=== PATIENT | male | born 1965 | race Caucasian/White ===

== ENCOUNTER 2021-10-19 07:38 | Emergency (ER) | payer BC, SELFPAY ==
[2021-10-19 07:49] VITALS: BP 132/96; PULSE 69; O2SAT 97
[2021-10-19 07:52] VITALS: BP 132/96; PULSE 57; RESP 20; TEMP 36.7; O2SAT 98; BMI 30.9
--- NOTE | 2021-10-19 07:59 | HMH.EDGENADL ---
Discharge Plan Disposition Patient Disposition: Home, Self-Care Condition: Good Prescriptions Prescriptions: New diclofenac potassium 50 mg tablet 50 mg PO TID PRN (Reason: pain) Qty: 30 0RF tizanidine 4 mg capsule 4 mg PO TID PRN (Reason: muscle spasticity) Qty: 20 0RF Referrals Follow up/Referrals: Luis A Cerna MD [Primary Care Provider] - See instructions Activity Restrictions/Add. Instructions Additional Instructions/Restrictions: Apply ice 4-5 times daily, 15 minutes each time to the area of discomfort. Avoid strenuous physical activity. Off work for the remainder of this week. Follow-up closely with your primary care provider for consideration of physical therapy and/or advanced imaging if symptoms do not improve. Clinical Impressions Clinical Impression: Spasm of back muscles Discharge ED Provider: Elijah Hannon General Adult HPI General Chief complaint: Extremity Injury, Upper Stated complaint: back of shoulder pain, no accident Time Seen by Provider: 10/19/21 07:48 Mode of Arrival: Ambulatory Source of Information: Patient Limitations: No Limitations Description of Symptoms (Recalled from ER Triage Doc. by RN): Patient complains of right shoulder pain. Patient reports that the pain woke him up from his sleep around 0430 and has not been able to get chele relief. History of Present Illness HPI narrative: Presents complaining of pain between the shoulder blades that began approximate 5 AM this morning. He notes that the positional nature and describes the pain as moderate to severe and exacerbated by certain types of movements and positions. He states has been having similar episodic pain for the last month. He denies chest pain, shortness of air or focal neurological deficits at this time. Related Data Previous Rx's Medication Instructions Recorded diclofenac potassium 50 mg tablet 50 mg PO TID PRN pain #30 tabs 10/19/21 tizanidine 4 mg capsule 4 mg PO TID PRN muscle spasticity 10/19/21 #20 caps Allergies Allergy/AdvReac Type Severity Reaction Status Date / Time No Known Allergies Allergy Verified 10/19/21 07:57 [facility] Social History Smoking Status: Current every day smoker tobacco type: cigarettes alcohol intake: never current occupational status: employed Travel in the last 8 weeks: None ROS Obtained: Yes All systems reviewed & no additional complaints except as documented Physical Exam General General appearance: alert Head Head exam: atraumatic Eye Eye exam: Present normal appearance Neck Neck exam: Present normal inspection (Pt. is holding the head tilted to the right and apparent discomfort.) Chest Chest inspection: Present normal inspection Respiratory Respiratory exam: Present normal lung sounds bilaterally Cardiovascular Cardiovascular exam: Present regular rate and normal rhythm Abdominal Exam Abdominal exam: Present soft; Absent tenderness Back Exam Back exam: Present normal inspection (There is apparent tenderness in the thoracic paraspinous muscle distribution more so to the right than the left. There is no midline spinous process tenderness or erythema or edema. No findings of trauma.) Neurological Exam Neurological exam: Present alert, oriented X3 and motor sensory deficit Psychiatric Psychiatric exam: Present normal affect and normal mood Skin Skin exam: Present warm and dry Lymphatic Lymphatic Findings: no adenopathy Medical Decision Making Medical Records Medical records reviewed: Yes I reviewed the patient's medical records. Braydon Inquiry Pt receiving controlled substance: Yes Braydon was queried for this patient: Yes Risks and benefits of using a controlled substance: were discussed with pt by me Vital Signs: 10/19/21 07:52 10/19/21 07:49 10/19/21 09:19 Temperature 98.1 F Temperature Source Oral Pulse Rate 69 51 L Pulse Rate [Left Brachial] 57 L Respiratory Rate 2
--- NOTE | 2021-10-19 08:31 | XR_ITS ---
FINAL REPORT CLINICAL HISTORY: neck/shoulder pain, woke up with pain, no recent injury FINDINGS: CERVICAL SPINE 4 views were obtained. There is no acute fracture. There is no malalignment. There are mild degenerative changes with osteophytes. There is no soft tissue abnormality. IMPRESSION: No acute bony abnormality. Reviewed, Interpreted and Dictated by Malcom Watters III, MD Transcribed by Milena Reardon Authenticated and [facility]
[2021-10-19 09:19] VITALS: BP 121/64; PULSE 51; O2SAT 96
[2021-10-19 09:30] VITALS: BP 109/51; PULSE 46; O2SAT 96
[2021-10-19 09:59] VITALS: BP 109/51; PULSE 47; RESP 20; TEMP 36.7; O2SAT 95
== END 2021-10-19 10:03 | disposition home or self-care (01) ==
PROVIDERS: Emergency Provider Emergency Medicine; PCP Internal Medicine Adolescent Medicine
DX: M25.511 Pain in right shoulder; M62.830 Muscle spasm of back; F17.210 Nicotine dependence, cigarettes, uncomplicated
CPT/HCPCS: 72040; 96374; 96375; 96376; 99284

== ENCOUNTER 2021-11-17 16:00 | Outpatient (RCR) | payer BC, SELFPAY ==
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
== END 2021-11-17 16:05 | disposition home or self-care (01) ==
LOC: PT 16:00
PROVIDERS: PCP Internal Medicine Adolescent Medicine; Visit Provider Nurse Practitioner Family
DX: M54.2 Cervicalgia (principal)
CPT/HCPCS: 97163

== ENCOUNTER 2023-09-26 19:48 | Emergency (ER) | payer BC, SELFPAY ==
[2023-09-26 19:50] VITALS: BP 161/77; PULSE 87; RESP 18; TEMP 37.4; O2SAT 97; BMI 28.4
--- NOTE | 2023-09-26 19:51 | ED_ITS ---
<Statement entered by Shasta Urena DO - 09/26/23 22:00> I was consulted by the RUSTY, and we discussed the complexity of the problems being addressed. I approved the treatment and management plan for this patient's care in the emergency department, thus performing a substantive portion of the medical decision making. Shasta Urena DO Discharge Plan Disposition Patient Disposition: Home, Self-Care Condition: Good Prescriptions Prescriptions: No Action diclofenac potassium 50 mg tablet 50 mg PO TID PRN (Reason: pain) Qty: 30 0RF tizanidine 4 mg capsule 4 mg PO TID PRN (Reason: muscle spasticity) Qty: 20 0RF Referrals Follow up/Referrals: Luis A Cerna MD [Primary Care Provider] - See instructions Activity Restrictions/Add. Instructions Additional Instructions/Restrictions: Follow-up with your PCP for any worsening signs or symptoms. Return to ER for any worsening signs or symptoms. Take Tylenol alternating with Motrin every 4 hours as needed for constitutional symptoms. Clinical Impressions Clinical Impression: Acute COVID-19 Stand Alone Forms Stand Alone Forms: Work/School Release Instructions Patient Instructions: DI for COVID-19 (Suspected or Confirmed ) Print Language Print Language: Chinese Discharge ED Provider: Shasta Urena General Adult HPI General Chief complaint: Weakness Stated complaint: Chills,weakness Time Seen by Provider: 09/26/23 19:51 History of Present Illness HPI narrative: Patient presents for evaluation of 24 hours of fever malaise and weakness. Patient states that he had a coworker recently tested positive for COVID and he himself is vaccinated up-to-date with COVID however in the last 24 hours he has felt weak describing cold chills running up and down my back with a dry cough but no headache chest pain shortness of breath hemoptysis hematochezia melena hematemesis. Related Data Previous Rx's ?Medication ?Instructions ?Recorded diclofenac potassium 50 mg tablet 50 mg PO TID PRN pain #30 tabs 10/19/21 tizanidine 4 mg capsule 4 mg PO TID PRN muscle spasticity 10/19/21 #20 caps Allergies Allergy/AdvReac Type Severity Reaction Status Date / Time No Known Allergies Allergy Verified 10/19/21 07:57 [facility] Disclaimer: The information contained in this section may have been updated after the patient was seen, as this information can be updated by other users. Social History (Updated 10/19/21 @ 09:53 by Elijah Hannon MD) Smoking Status: Current every day smoker tobacco type: cigarettes alcohol intake: never current occupational status: employed Travel in the last 8 weeks: None ROS Obtained: Yes Systems reviewed as appropriate & no additional complaints except as documented Physical Exam General General appearance: alert and in no apparent distress Respiratory Respiratory exam: Present normal lung sounds bilaterally; Absent respiratory distress, wheezes, stridor or accessory muscle use Cardiovascular Cardiovascular exam: Present regular rate, normal rhythm, normal heart sounds and +S2 Neurological Exam Neurological exam: Present alert and oriented X3 Medical Decision Making Medical Records Medical records reviewed: Yes I reviewed the patient's medical records. Braydon Inquiry Pt receiving controlled substance: No Braydon was queried for this patient: No Vital Signs: 09/26/23 19:50 09/26/23 20:00 09/26/23 21:22 Temperature 99.4 F 98.2 F Temperature Source Oral Pulse Rate 76 84 Pulse Rate [Left] 87 Respiratory Rate 18 18 Blood Pressure 151/76 H 145/68 H Blood Pressure [Right Arm] 161/77 H Blood Pressure Mean 88 Blood Pressure Mean [Right Arm] 105 Blood Pressure Source [Right Arm] Automatic Cuff Blood Pressure Position [Right Arm] Sitting 02 Sat by Pulse Oximetry 97 Oxygen Delivery Method Room Air Lab Data Lab results reviewed: Yes I reviewed the patient's lab results. Lab Results 09/26/23 19:58: SARS-CoV-2 (PCR) Detected A, Influenza A Untype (PCR) Not detected, Influenza Type B (PCR) Not detected 09/26/23 20:11: WBC 7.6, RBC 4.72, Hgb 15.1, Hct 47.0, MCV 99.7 H, MCH 31.9 H, MCHC 32.0, RDW 13.4, Plt Count 218, MPV 7.9, Neut % (Auto) 86.4 H, Lymph % (Auto) 5.5 L, [place] % (Auto) 5.5, Eos % (Auto) 2.0, Baso % (Auto) 0.7, Neut # (Auto) 6.6, Lymph # (Auto) 0.4 L, [place] # (Auto) 0.4, Eos # (Auto) 0.2, Baso # (Auto) 0.1, Sodium 136, Potassium 3.6, Chloride 103, Carbon Dioxide 26, Anion Gap 10.6, BUN 15, Creatinine 1.10, Estimated Creat Clear 78, Estimated GFR 68, Est GFR ( Amer) 83, Glucose 134 H, Calcium 9.1, Total Bilirubin 0.6, AST 38, ALT 37, Alkaline Phosphatase 102, Total Protein 7.7, Albumin 4.4, Globulin 3.3 H, Albumin/Globulin Ratio 1.3 09/26/23 20:11 09/26/23 20:11 Orders (Tests/Meds): ED MEDICATIONS Discontinued Medications Generic Name Dose Route Start Last Admin Trade Name Freq PRN Reason Stop Dose Admin Acetaminophen 1,000 mg 09/26/23 19:57 09/26/23 20:05 Acetaminophen 1,000mg/100ml Vial IV 09/26/23 19:58 1,000 mg ONCE ONE Administration Lactated Ringer's 1,000 mls @ 999 mls/hr 09/26/23 19:57 09/26/23 20:05 Lactated Ringer's 1000 Ml Bag IV 09/26/23 20:57 999 mls/hr .Q1H1M ONE Administration Ketorolac Tromethamine 15 mg 09/26/23 19:57 09/26/23 20:05 Ketorolac 30mg/Ml Vial IV 09/26/23 19:58 15 mg ONCE ONE Administration ORDERS Category Date Time Status Chest XR 2 view (NOT portable) [XR chest 2V] Stat Exams 09/26/23 19:57 Completed CBC w/Auto Diff [Complete Blood Count Auto Diff] Stat Lab 09/26/23 20:11 Results CMP [Comprehensive Metabolic Panel] Stat Lab 09/26/23 20:11 Completed Rapid PCR Covid and Flu A/B Stat Lab 09/26/23 19:58 Completed Medical Decision Narrative: In summary patient is a 58-year-old male who presents to the emergency department for evaluation of cough malaise fever and weakness. Patient is hemodynamically stable upon arrival, afebrile. Physical exam is remarkable for clear breath sounds normal heart sounds satting at 97% on room air normal sinus rhythm on the bedside monitor but patient is febrile on arrival to 99.4. Differential diagnosis includes viral or bacterial upper respiratory tract infection. Initial workup will be conducted with respiratory swabs hematologic labs chest x-ray. Initial interventions include fluid bolus Toradol Tylenol. Initial workup reviewed by shows his hematologic labs are nonactionable medical interpretation of his plain film does show x-ray shows no acute infiltrates suggestive however of bronchitis and his respiratory swabs are positive for COVID. Upon repeat evaluation patient reported significant improvement after initial intervention. Given this patient is appropriate for discharge with instructions on symptomatic treatment for constitutional symptoms with Tylenol and Motrin and strict return precautions. Critical Care Critical Care Time Critical Care Time: No
--- NOTE | 2023-09-26 19:57 | XR_ITS ---
PROCEDURE INFORMATION: Exam: XR Chest Exam date and time: 09/26/2023 8:03 PM Age: 58 years old Clinical indication: Cough; Additional info: Cough cold chills TECHNIQUE: Imaging protocol: Radiologic exam of the chest. Views: 2 views. COMPARISON: CR XR CERVICAL SPINE 3V 10/19/2021 8:43 AM FINDINGS: Lungs: Mild regions of peribronchial thickening at the lung bases. Pleural spaces: Unremarkable. No pleural effusion. No pneumothorax. Heart/Mediastinum: Unremarkable. No cardiomegaly. Bones/joints: Unremarkable. IMPRESSION: Findings compatible with bronchitis.
[2023-09-26 20:00] VITALS: BP 151/76; PULSE 76
[2023-09-26] MEDS: ACETAMINOPHEN 1,000MG/100ML VIAL 1000 MG IV (20:05)
[2023-09-26] MEDS: LACTATED RINGERS 1000ML 1,000 ML 999 ML IV (20:05)
[2023-09-26] MEDS: KETOROLAC 30MG/ML VIAL 15 MG IV (20:05)
[2023-09-26 20:15] LABS: Influenza A, PCR Not Detected (NotDetected); Influenza B, PCR Not Detected (NotDetected)
[2023-09-26 20:26] LABS: Basophils # 0.1 K/mm3 (0-0.2); Basophils % 0.7 % (0.1-2.0); Eosinophils # 0.2 K/mm3 (0.0-0.4); Hemoglobin 15.1 g/dL (14.1-18.0); Lymphocytes # 0.4 K/mm3 (0.7-4.5); Lymphocytes % 5.5 % (10-50); Mean Corpuscular Hemoglobin 31.9 pg (27.0-31.2); Mean Corpuscular Volume 99.7 fl (80-94); Mean Platelet Volume 7.9 fl (7.4-10.4); Monocytes # 0.4 K/mm3 (0.1-1.0); Monocytes % 5.5 % (1.7-9.3); Neutrophils # 6.6 K/mm3 (1.8-7.8); Neutrophils % 86.4 % (37.0-80.0); Platelet Count 218 K/mm3 (142-424); Red Blood Count 4.72 M/mm3 (4.60-6.20); Red Cell Distribution Width 13.4 % (11.5-17.5); White Blood Count 7.6 K/mm3 (4.8-10.8)
[2023-09-26 20:30] LABS: Albumin Level 4.4 g/dl (3.5-5.0); Chloride 103 mmol/L (98-107); Potassium 3.6 mmoL/L (3.5-5.1); Sodium 136 mmol/L (136-145)
[2023-09-26 20:33] LABS: Alanine Aminotransferase 37 U/L (12-78); Albumin/Globulin Ratio 1.3 (1.1-1.8); Alkaline Phosphatase 102 U/L (38-126); Anion Gap 10.6 mEq/L (5-15); Aspartate Amino Transferase 38 U/L (17-59); Bilirubin,Total 0.6 mg/dl (0.2-1.3); Blood Urea Nitrogen 15 mg/dl (9-20); Calcium 9.1 mg/dl (8.4-10.2); Carbon Dioxide 26 mmol/L (22.0-30.0); Creatinine Clearance Estimated 78 mL/min (50-200); Estimated Glomerular Filt Rate 68 ml/min (>60); GFR (African American) 83 ML/MIN (>60); Globulin 3.3 g/dL (1.3-3.2); Glucose 134 mg/dl (74-100); Total Protein,Serum 7.7 g/dl (6.3-8.2)
[2023-09-26 20:45] LABS: MANUAL DIFFERENTIAL MANUAL DIFFERENTIAL (MANUAL DIFF)
[2023-09-26 21:03] LABS: Coronavirus 19, PCR Detected (NotDetected)
[2023-09-26 21:22] VITALS: BP 145/68; PULSE 84; RESP 18; TEMP 36.8; O2SAT 100
[2023-09-27 04:04] LABS: Lymphocytes % 9 % (10-50); Monocytes % 2 % (2-9); Neutrophils % 88 % (42-76); Platelet Estimate Normal; RBC Morphology Normal; Total Cells Counted 100
== END 2023-09-26 21:26 | disposition home or self-care (01) ==
PROVIDERS: Physician Assistant; Emergency Provider Emergency Medicine; PCP Internal Medicine Adolescent Medicine
DX: U07.1 COVID-19 (principal); R50.9 Fever, unspecified; R53.1 Weakness; R05.9 Cough, unspecified; R53.81 Other malaise
CPT/HCPCS: 71046; 80053; 85007; 85025; 85027; 87636; 96361; 96374; 96375; 99284; J0131; J1885; J7120

== ENCOUNTER 2023-10-16 18:08 | Emergency (ER) | payer BC, SELFPAY ==
[2023-10-16 18:10] VITALS: BP 128/78; PULSE 67; RESP 16; TEMP 36.6; O2SAT 99; BMI 28.4
[2023-10-16 18:31] VITALS: BP 133/72; PULSE 64; O2SAT 98
--- NOTE | 2023-10-16 18:42 | ED_ITS ---
<Statement entered by Cy Urena MD - 10/16/23 21:50> I was consulted by the RUSTY, and we discussed the complexity of the problems being addressed. I approved the treatment and management plan for this patient's care in the emergency department, thus performing a substantive portion of the medical decision making. Workup remarkable for acute uncomplicated diverticulitis for which patient was tolerating p.o. and was appropriately discharged with antibiotics and outpatient follow-up. Cy Urena MD Discharge Plan Disposition Patient Disposition: Home, Self-Care Prescriptions Prescriptions: New amoxicillin-pot clavulanate 875-125 mg tablet 1 tab PO BID Qty: 20 0RF No Action diclofenac potassium 50 mg tablet 50 mg PO TID PRN (Reason: pain) Qty: 30 0RF tizanidine 4 mg capsule 4 mg PO TID PRN (Reason: muscle spasticity) Qty: 20 0RF Referrals Follow up/Referrals: Luis A Cerna MD [Primary Care Provider] - See instructions Activity Restrictions/Add. Instructions Additional Instructions/Restrictions: Please follow-up with your PCP in 48 hours for recheck. Return to ER for any worsening signs or symptoms including nausea vomiting intractable pain fever etc. I have sent antibiotics into your pharmacy. Please take all till they are completed Clinical Impressions Clinical Impression: Acute diverticulitis Instructions Patient Instructions: DI for Diverticulitis Print Language Print Language: Cameroonian Discharge ED Provider: Cy Urena General Adult HPI General Chief complaint: Abdominal Pain Stated complaint: Abd Pain in middle of abd Time Seen by Provider: 10/16/23 18:15 Mode of Arrival: Ambulatory Source of Information: Patient Limitations: No Limitations Description of Symptoms (Recalled from ER Triage Doc. by RN): pt reports to ED with c/o pain located below the belly button. pt reports pain intermittent since last night. History of Present Illness HPI narrative: Patient presents for evaluation of periumbilical abdominal pain. Patient has been having periumbilical abdominal pain since yesterday. He states that sharp in nature and does not radiate. He reports that it is intermittent and only last for a few seconds at a time. He denies any fever chills hemoptysis hematochezia melena nausea vomiting diarrhea. Patient reports he has not had a bowel movement since Monday. He is not however intolerant of oral intake. Related Data Previous Rx's ?Medication ?Instructions ?Recorded diclofenac potassium 50 mg tablet 50 mg PO TID PRN pain #30 tabs 10/19/21 tizanidine 4 mg capsule 4 mg PO TID PRN muscle spasticity 10/19/21 #20 caps amoxicillin 875 mg-potassium 1 tab PO BID #20 tabs 10/16/23 clavulanate 125 mg tablet Allergies Allergy/AdvReac Type Severity Reaction Status Date / Time No Known Allergies Allergy Verified 10/19/21 07:57 [facility] Disclaimer: The information contained in this section may have been updated after the patient was seen, as this information can be updated by other users. Social History (Updated 10/19/21 @ 09:53 by Elijah Hannon MD) Smoking Status: Current every day smoker tobacco type: cigarettes alcohol intake: never current occupational status: employed Travel in the last 8 weeks: None ROS Obtained: Yes Systems reviewed as appropriate & no additional complaints except as documented Physical Exam General General appearance: alert and in no apparent distress Respiratory Respiratory exam: Present normal lung sounds bilaterally Cardiovascular Cardiovascular exam: Present regular rate Neurological Exam Neurological exam: Present alert and oriented X3 Medical Decision Making Medical Records Medical records reviewed: Yes I reviewed the patient's medical records. Braydon Inquiry Pt receiving controlled substance: No Vital Signs: 10/16/23 18:10 10/16/23 18:31 10/16/23 19:00 Temperature 97.9 F Temperature Source Oral Pulse Rate 64 58 L Pulse Rate [Left Radial] 67 Respiratory Rate 16 Blood Pressure 133/72 143/96 H Blood Pressure [Right Arm] 128/78 Blood Pressure Mean [Right Arm] 94 02 Sat by Pulse Oximetry 99 98 96 Oxygen Delivery Method Room Air Room Air Room Air Lab Data Lab results reviewed: Yes I reviewed the patient's lab results. Lab Results 10/16/23 18:23: WBC 10.9 H, RBC 4.82, Hgb 15.4, Hct 48.7, MCV 101.2 H, MCH 31.9 H, MCHC 31.5 L, RDW 13.4, Plt Count 264, MPV 8.3, Neut % (Auto) 79.0, Lymph % (Auto) 13.9, [place] % (Auto) 5.4, Eos % (Auto) 1.1, Baso % (Auto) 0.6, Neut # (Auto) 8.6 H, Lymph # (Auto) 1.5, [place] # (Auto) 0.6, Eos # (Auto) 0.1, Baso # (Auto) 0.1, Sodium 141, Potassium 4.1, Chloride 108 H, Carbon Dioxide 28, Anion Gap 9.1, BUN 15, Creatinine 1.00, Estimated Creat Clear 86, Estimated GFR 76, Est GFR ( Amer) 92, Glucose 113 H, Calcium 9.2, Magnesium 2.0, Total Bilirubin 0.7, AST 26, ALT 29, Alkaline Phosphatase 95, Total Protein 8.2, Albumin 4.4, Globulin 3.8 H, Albumin/Globulin Ratio 1.2, Lipase 120 10/16/23 19:16: Urine Color Yellow, Urine Appearance Clear, Urine pH 6.0, Ur Specific [place] >= 1.030, Urine Protein 1+ A, Urine Glucose (UA) Negative, Urine Ketones Negative, Urine Blood 2+ A, Urine Nitrate Negative, Urine Bilirubin Negative, Urine Urobilinogen 0.2, Ur Leukocyte Esterase Negative, Urine RBC 3-5, Urine WBC None, Ur Squamous Epith Cells 3-5, Urine Bacteria Trace, Hyaline Casts Occasional, Urine Mucus Trace 10/16/23 18:23 10/16/23 18:23 Orders (Tests/Meds): ED MEDICATIONS Generic Name Dose Route Start Last Admin Trade Name Esme PRN Reason Stop Dose Admin Sodium Chloride 10 ml 10/16/23 19:24 10/16/23 19:26 Sodium Chloride 0.9% 10ml Syr (Rad Only) IV 11/15/23 19:23 10 ml NEEDED PRN Administration Maintain IV Site Discontinued Medications Generic Name Dose Route Start Last Admin Trade Name Fresharita PRN Reason Stop Dose Admin Acetaminophen 1,000 mg 10/16/23 18:49 10/16/23 19:13 Acetaminophen 1,000mg/100ml Vial IV 10/16/23 18:50 1,000 mg ONCE ONE Administration Amoxicillin/Clavulanate Potassium 1 each 10/16/23 20:42 10/16/23 21:05 Amoxicillin/Clavulanate Potassium 875/125mg Tablet PO 10/16/23 20:43 1 each ONCE ONE Administration Lactated Ringer's 1,000 mls @ 999 mls/hr 10/16/23 18:49 10/16/23 19:13 Lactated Ringer's 1000 Ml Bag IV 10/16/23 19:49 999 mls/hr .Q1H1M ONE Administration Iopamidol 75 ml 10/16/23 19:24 10/16/23 19:26 Iopamidol-370 (76%);100ml Bottle IV 10/16/23 19:25 75 ml ONCE ONE Administration Ketorolac Tromethamine 15 mg 10/16/23 18:49 10/16/23 19:13 Ketorolac 30mg/Ml Vial IV 10/16/23 18:50 15 mg ONCE ONE Administration ORDERS Category Date Time Status CT abdomen pelvis w con Stat Cat Scan 10/16/23 18:50 Completed CBC w/Auto Diff [Complete Blood Count Auto Diff] Stat Lab 10/16/23 18:23 Completed CMP [Comprehensive Metabolic Panel] Stat Lab 10/16/23 18:23 Completed Lipase Stat Lab 10/16/23 18:23 Completed Magnesium Stat Lab 10/16/23 18:23 Completed UA [Urinalysis and Microscopic] Stat Lab 10/16/23 19:16 Completed Medical Decision Narrative: In summary patient is a-year-old male who presents to the emergency department for evaluation of periumbilical abdominal. Patient is hemodynamically stable upon arrival, febrile. Physical exam is remarkable for periumbilical tenderness on palpation but no focal abdominal tenderness no rebound or guarding no rigidity with normal bowel sounds. Differential diagnosis includes constipation versus urinary tract infection versus acute appendicitis etc. Initial workup will be conducted with hematologic labs CT scan abdomen pelvis with contrast. Initial interventions include crystalloid bolus Toradol Tylenol Zofran. Initial workup reviewed by me and his white count is 10.9 with an absolute neutrophil count of 8.6 and urinalysis shows protein and blood on the dipstick with microscopic exam showing negative leukocyte esterase 3-5 red blood cells no white cells trace bacteria with hyaline casts. Upon repeat evaluation is still tolerating p.o. and remains afebrile and hemodynamically stable. Given this patient is appropriate discharge with close follow-up with his PCP within 48 hours. Critical Care Critical Care Time Critical Care Time: No
--- NOTE | 2023-10-16 18:50 | CT_ITS ---
PROCEDURE INFORMATION: Exam: CT Abdomen And Pelvis With Contrast Exam date and time: 10/16/2023 7:18 PM Age: 58 years old Clinical indication: Abdominal pain; Additional info: Periumbilical abdominal pain TECHNIQUE: Imaging protocol: Computed tomography of the abdomen and pelvis with contrast. Radiation optimization: All CT scans at this facility use at least one of these dose optimization techniques: automated exposure control; mA and/or kV adjustment per patient size (includes targeted exams where dose is matched to clinical indication); or iterative reconstruction. Contrast material: ISOVUE; Contrast volume: 75 ml; Contrast route: IV; COMPARISON: CR XR CHEST 2V 09/26/2023 8:03 PM FINDINGS: Lungs: Mild atelectasis. Liver: Normal. No mass. Gallbladder and biliary ducts: Cholecystectomy. Pancreas: Mild fatty infiltration. No ductal dilation. Spleen: Normal. No splenomegaly. Adrenal glands: Normal. No mass. Kidneys and ureters: 1.4 cm midpole cyst. No hydronephrosis. Stomach and bowel: Short-segment distal sigmoid colon wall thickening and pericolonic fat stranding/fluid, occurring on a background of diverticular disease. Appendix: No evidence of appendicitis. Intraperitoneal space: No free air. Vasculature: Atherosclerosis. No abdominal aortic aneurysm. Lymph nodes: Unremarkable. No enlarged lymph nodes. Urinary bladder: Incompletely distended. Diffuse wall thickening. Reproductive: Mild prostatomegaly. Bones/joints: Degenerative changes. No acute fracture. Soft tissues: Very small fat containing umbilical hernia. Small fat containing left inguinal hernia. IMPRESSION: 1. Short-segment distal sigmoid colon wall thickening and pericolonic fat stranding/free fluid, occurring on a background of diverticular disease. Findings likely represent acute uncomplicated diverticulitis or other infectious/inflammatory colitis. 2. Mild diffuse bladder wall thickening, likely related to incomplete distention, although may be reactive in nature given adjacent sigmoid colon inflammatory changes.
[2023-10-16 19:00] VITALS: BP 143/96; PULSE 58; O2SAT 96
[2023-10-16 19:02] LABS: Albumin Level 4.4 g/dl (3.5-5.0); Chloride 108 mmol/L (98-107)
[2023-10-16 19:03] LABS: Potassium 4.1 mmoL/L (3.5-5.1); Sodium 141 mmol/L (136-145)
[2023-10-16 19:05] LABS: Alanine Aminotransferase 29 U/L (12-78); Anion Gap 9.1 mEq/L (5-15); Aspartate Amino Transferase 26 U/L (17-59); Blood Urea Nitrogen 15 mg/dl (9-20); Carbon Dioxide 28 mmol/L (22.0-30.0); Creatinine Clearance Estimated 86 mL/min (50-200); Estimated Glomerular Filt Rate 76 ml/min (>60); GFR (African American) 92 ML/MIN (>60)
[2023-10-16 19:06] LABS: Albumin/Globulin Ratio 1.2 (1.1-1.8); Alkaline Phosphatase 95 U/L (38-126); Basophils # 0.1 K/mm3 (0-0.2); Basophils % 0.6 % (0.1-2.0); Bilirubin,Total 0.7 mg/dl (0.2-1.3); Calcium 9.2 mg/dl (8.4-10.2); Eosinophils # 0.1 K/mm3 (0.0-0.4); Eosinophils % 1.1 % (0.1-12.0); Globulin 3.8 g/dL (1.3-3.2); Glucose 113 mg/dl (74-100); Hematocrit 48.7 % (42.0-52.0); Hemoglobin 15.4 g/dL (14.1-18.0); Lipase 120 U/L (23-300); Lymphocytes # 1.5 K/mm3 (0.7-4.5); Lymphocytes % 13.9 % (10-50); Mean Corpuscular HGB Conc 31.5 g/dL (31.8-35.4); Mean Corpuscular Hemoglobin 31.9 pg (27.0-31.2); Mean Corpuscular Volume 101.2 fl (80-94); Mean Platelet Volume 8.3 fl (7.4-10.4); Monocytes # 0.6 K/mm3 (0.1-1.0); Monocytes % 5.4 % (1.7-9.3); Neutrophils # 8.6 K/mm3 (1.8-7.8); Platelet Count 264 K/mm3 (142-424); Red Blood Count 4.82 M/mm3 (4.60-6.20); Red Cell Distribution Width 13.4 % (11.5-17.5); Total Protein,Serum 8.2 g/dl (6.3-8.2); White Blood Count 10.9 K/mm3 (4.8-10.8)
[2023-10-16] MEDS: ACETAMINOPHEN 1,000MG/100ML VIAL 1000 MG IV (19:13)
[2023-10-16] MEDS: LACTATED RINGERS 1000ML 1,000 ML 999 ML IV (19:13)
[2023-10-16] MEDS: KETOROLAC 30MG/ML VIAL 15 MG IV (19:13)
[2023-10-16 19:23] LABS: Microscopic, Urine URINE MICROSCOPIC (MICROSCOPIC)
[2023-10-16] MEDS: SODIUM CHLORIDE 0.9% 10ML SYR (RAD ONLY) 10 ML IV (19:26)
[2023-10-16] MEDS: IOPAMIDOL-370 (76%);100ML BOTTLE 75 ML IV (19:26)
[2023-10-16 19:36] LABS: Appearance,Urine CLEAR (Clear); Bilirubin,Urine Negative (Negative); Blood, Urine 2+ (Negative); Color,Urine YELLOW (Yellow); Glucose,Urine (UA) Negative (Negative); Ketones,Urine Negative (Negative); Leukocyte Esterase,Urine Negative (Negative); Nitrate,Urine Negative (Negative); Protein,Urine 1+ (Negative); Specific Gravity, Urine >= 1.030 (1.005-1.030); Urobilinogen,Urine 0.2 EU/dl (0.2)
[2023-10-16 20:17] LABS: Bacteria,Urine Trace /lpf; Hyaline Casts,Urine Occasional #/lpf (0); Mucus,Urine Trace /lpf
[2023-10-16] MEDS: AMOXICILLIN/CLAVULANATE POTASSIUM 875/125MG TABLET 1 EACH PO (21:05)
[2023-10-16 21:09] VITALS: BP 138/67; PULSE 58; RESP 18; TEMP 36.7; O2SAT 100
== END 2023-10-16 21:11 | disposition home or self-care (01) ==
PROVIDERS: Physician Assistant; Emergency Provider Emergency Medicine; PCP Internal Medicine Adolescent Medicine
DX: R10.33 Periumbilical pain (principal); K57.32 Diverticulitis of large intestine without perforation or abscess without bleeding
CPT/HCPCS: 74177; 80053; 81001; 83690; 83735; 85025; 96361; 96374; 96375; 99285; J0131; J1885; J7120; Q9967

== ENCOUNTER 2023-11-23 15:51 | Emergency (ER) | payer BC, SELFPAY ==
[2023-11-23 15:57] VITALS: BP 171/82; PULSE 70; O2SAT 100
--- NOTE | 2023-11-23 16:06 | XR_ITS ---
PROCEDURE INFORMATION: Exam: XR Left Shoulder Exam date and time: 11/23/2023 4:07 PM Age: 58 years old Clinical indication: Injury or trauma; Other: Dog fight; Blunt trauma (contusions or hematomas); Shoulder; Left; Additional info: Shoulder injury from breaking up dog fight TECHNIQUE: Imaging protocol: Radiologic exam of the left shoulder. Views: 2 or more views. COMPARISON: CR XR CHEST 2V 09/26/2023 8:03 PM FINDINGS: Bones/joints: The glenohumeral joint shows mild joint space narrowing. There are small osteophytes at the joint margins, particularly at the inferior aspect of the humeral head and the glenoid. Subchondral sclerosis is noted at the humeral head and glenoid. The acromioclavicular (AC) joint also demonstrates mild joint space narrowing and small osteophytes. No acute fracture or dislocation is identified. The visualized portions of the ribs, scapula, and clavicle are intact and demonstrate normal bone density. There is some calcium deposition along the inferior aspect of the joint space which is nonspecific. Soft tissues: The soft tissues appear unremarkable. No evidence of significant soft tissue swelling or calcification. IMPRESSION: 1. Mild degenerative changes of the glenohumeral and acromioclavicular joints consistent with early osteoarthritis. 2. No evidence of acute osseous injury or significant soft tissue abnormality.
[2023-11-23 16:14] VITALS: BP 171/82; PULSE 77; RESP 14; TEMP 36.9; O2SAT 99; BMI 29.4
--- NOTE | 2023-11-23 16:17 | PC.NURSE ---
pt to xr
[2023-11-23] MEDS: KETOROLAC 30MG/ML VIAL 30 MG IM (16:23)
[2023-11-23 16:30] VITALS: BP 169/82; PULSE 56; O2SAT 98
--- NOTE | 2023-11-23 16:37 | ED_ITS ---
Discharge Plan Disposition Patient Disposition: Home, Self-Care Prescriptions Prescriptions: New cyclobenzaprine 10 mg tablet 10 mg PO TID PRN (Reason: muscle spasm) 5 Days Qty: 15 0RF ibuprofen 800 mg tablet 800 mg PO TID PRN (Reason: pain) 7 Days Qty: 20 0RF No Action diclofenac potassium 50 mg tablet 50 mg PO TID PRN (Reason: pain) Qty: 30 0RF tizanidine 4 mg capsule 4 mg PO TID PRN (Reason: muscle spasticity) Qty: 20 0RF amoxicillin-pot clavulanate 875-125 mg tablet 1 tab PO BID Qty: 20 0RF Referrals Follow up/Referrals: Tristan Umanzor DO [Staff Physician] - See instructions Luis A Cerna MD [Primary Care Provider] - See instructions Activity Restrictions/Add. Instructions Additional Instructions/Restrictions: No evidence of acute fracture or dislocation. Please wear your brace as needed for comfort otherwise follow-up with Dr. Umanzor as needed. Clinical Impressions Clinical Impression: Left shoulder strain, Rotator cuff injury Print Language Print Language: Spanish Discharge ED Provider: Freddie Eden General Adult HPI General Chief complaint: Extremity Injury, Upper Stated complaint: AO 11/23/23 1200 Dog Bite with left shoulder injur Time Seen by Provider: 11/23/23 15:56 Mode of Arrival: Ambulatory Source of Information: Patient Limitations: No Limitations Description of Symptoms (Recalled from ER Triage Doc. by RN): pt states his dog and another dog were fighting and he was drug down a hill, flipped over a santizo and landed on his L shoulder. pt states he had a L shoulder MRI 6wks ago that showed a torn rotator cuff. pt states he has very limited ROM, pain is 5/10 and dull when immobilized. when pt attempts the move the arm the pain becomes sharp and 10/10. pt is currently being treated by ortho in [facility] but expresses distaste with his care. History of Present Illness HPI narrative: Patient is a 58-year-old male presenting today with left shoulder pain. States he has had chronic shoulder pain and has been diagnosed with rotator cuff injuries based on MRI on both shoulders most recently his left shoulder a few weeks ago. He is followed by an orthopedic surgeon in [place] specifically because he is interested in stem cell therapy. States that today he was with his dog and another dog got into a fight with his dog and pulled him down onto a hill where he injured his left shoulder again. States he is having difficulty with movement. He specifically asked not to be given pain medicine that is sedating. Denies any sensation or motor loss but does have pain with movement Related Data Previous Rx's ?Medication ?Instructions ?Recorded diclofenac potassium 50 mg tablet 50 mg PO TID PRN pain #30 tabs 10/19/21 tizanidine 4 mg capsule 4 mg PO TID PRN muscle spasticity 10/19/21 #20 caps amoxicillin 875 mg-potassium 1 tab PO BID #20 tabs 10/16/23 clavulanate 125 mg tablet cyclobenzaprine 10 mg tablet 10 mg PO TID PRN muscle spasm 5 11/23/23 days #15 tabs ibuprofen 800 mg tablet 800 mg PO TID PRN pain 7 days #20 11/23/23 tabs Allergies Allergy/AdvReac Type Severity Reaction Status Date / Time codeine Allergy Hives Verified 11/23/23 16:20 [facility] Disclaimer: The information contained in this section may have been updated after the patient was seen, as this information can be updated by other users. Social History (Updated 10/19/21 @ 09:53 by Elijah Hannon MD) Smoking Status: Current every day smoker tobacco type: cigarettes alcohol intake: never current occupational status: employed Travel in the last 8 weeks: None Other Medical History Have you received the Flu Vaccine for this season: Yes Have you received the Pneumonia Vaccine: No ROS Obtained: Yes All systems reviewed & no additional complaints except as documented Physical Exam General General appearance: alert Respiratory Respiratory exam: Present normal lung sounds bilaterally Cardiovascular Cardiovascular exam: Present regular rate and normal rhythm Abdominal Exam Abdominal exam: Present soft; Absent distention or tenderness Extremities Exam Extremities exam: Present other (Patient holding his arm in an internally rotated and adducted position he has pain with any type of internal and external rotation but is neurovascularly intact) Neurological Exam Neurological exam: Present alert and oriented X3 Medical Decision Making Medical Records Screening: Per USPSTF and CDC recommendations, given the prevalence of disease in our [facility], it is our hospital?s policy to screen for HIV and viral Hepatitis for all patients aged 18 and over and those with ongoing risk factors. [place] Inquiry Pt receiving controlled substance: No Vital Signs: 11/23/23 15:57 11/23/23 16:14 11/23/23 16:30 Temperature 98.5 F Temperature Source Oral Pulse Rate 70 56 L Pulse Rate [Left] 77 Respiratory Rate 14 Blood Pressure 171/82 H 169/82 H Blood Pressure [Right Arm] 171/82 H Blood Pressure Mean [Right Arm] 111 Blood Pressure Source [Right Arm] Automatic Cuff Blood Pressure Position [Right Arm] Sitting 02 Sat by Pulse Oximetry 100 99 98 Oxygen Delivery Method Room Air Orders (Tests/Meds): ED MEDICATIONS Discontinued Medications Generic Name Dose Route Start Last Admin Trade Name Freq PRN Reason Stop Dose Admin Ketorolac Tromethamine 30 mg 11/23/23 16:06 11/23/23 16:23 Ketorolac 30mg/Ml Vial IM 11/23/23 16:07 30 mg ONCE ONE Administration ORDERS Category Date Time Status Shoulder XR left minimum 2 views [XR shoulder LT min 2V Exams 11/23/23 16:06 Completed ] Stat Medical Decision Narrative: Patient with above history and physical with chronic shoulder pain and known rotator cuff injuries presents with acute on chronic pain associated with a recent fall. X-rays were performed rule out fracture dislocation I personally interpreted these there is no evidence of any fracture or dislocation. Will treat the patient supportively. Also will give him a referral to our orthopedic surgeon. Critical Care Critical Care Time Critical Care Time: No
[2023-11-23 17:17] VITALS: BP 182/92; PULSE 60; RESP 18; TEMP 36.6; O2SAT 97
== END 2023-11-23 17:17 | disposition home or self-care (01) ==
PROVIDERS: Emergency Provider Student in an Organized Health Care Education/Training Program; PCP Internal Medicine Adolescent Medicine
DX: S46.009A Unspecified injury of muscle(s) and tendon(s) of the rotator cuff of unspecified shoulder, initial encounter (principal); S46.912A Strain of unspecified muscle, fascia and tendon at shoulder and upper arm level, left arm, initial encounter; M25.512 Pain in left shoulder; W18.39XA Other fall on same level, initial encounter; Y93.89 Activity, other specified; Y92.89 Other specified places as the place of occurrence of the external cause
CPT/HCPCS: 73030; 96372; 99283; J1885